=== PATIENT | female | born 1990 | race Two or more races ===

== ENCOUNTER 2016-11-15 10:31 | Emergency (ER) | payer OTHER ==
[~2016-11-15] VITALS: Ht 157.5 cm; Wt 70.0 kg
[~2016-11-15 10:31] MED LIST: ALDOMET250 MG PO; COLACE100 MG PO; ENDOCET 5-3251 EACH PO; MOTRIN800 MG PO
[2016-11-15 11:16] LABS: ADD MIUA? YES; BILIRUBIN NEGATIVE; BLOOD NEGATIVE; COLOR YELLOW ((YELLOW)); GLUCOSE (STRIP) NEGATIVE; KETONES 20; LEUKOCYTES NEGATIVE; NITRITE NEGATIVE; PROTEIN (STRIP) NEGATIVE; SPECIFIC GRAVITY 1.017 (1.000-1.030); UROBILINOGEN 0.2 MG/DL (0.2-1.0)
[2016-11-15 11:23] LABS: BACTERIA RARE /HPF; EPITHELIAL CELLS 1+ /HPF; HYALINE CASTS 0-5 /LPF; MUCUS TRACE /LPF; UCUL ADDED? NO; WHITE BLOOD CELLS 0-5 /HPF (0-5)
[2016-11-15 11:45] LABS: HEMATOCRIT 43.2 % (36.0-46.0); MCH 26.1 PG (29.0-34.0); MCHC 32.4 G/DL (30.0-36.0); MCV 80.6 FL (83-99); MEAN PLAT.VOLUME 9.5 uM^3 (9.5-12.4); PLATELET COUNT 373 K/uL (156-360); RBC DIS.WIDTH-CV 12.2 % (11.8-14.6); RBC DIS.WIDTH-SD 35.4 % (39-53); RED BLOOD COUNT 5.36 M/uL (3.80-5.20); WHITE BLOOD COUNT 13.5 K/uL (4.1-10.2)
[2016-11-15 11:55] LABS: CHLORIDE 105 mEq/L (99-109); POTASSIUM 3.1 mEq/L (3.7-5.4); SODIUM 140 mEq/L (136-147)
[2016-11-15 11:57] LABS: GLUCOSE 138 mg/dL (70-99)
[2016-11-15 11:58] LABS: ANION GAP 13 MEQ/L (2-14)
[2016-11-15 11:59] LABS: TOTAL BILIRUBIN 0.8 mg/dL (0.0-1.0)
[2016-11-15 12:00] LABS: ALKALINE PHOSPHATASE 49 IU/L (3-129)
[2016-11-15 12:01] LABS: GFR ESTIMATE (CALCULATED) > 59 mL/min/
[2016-11-15 12:02] LABS: UREA NITROGEN (BUN) 7 mg/dL (9-23)
[2016-11-15 12:04] LABS: LIPASE 11 U/L (1.0-51.0)
[2016-11-15 12:11] LABS: QUANTITATIVE HCG < 4.0 MIU/ML
[2016-11-15] MEDS ORDERED: ZOFRAN ODT4 MG PO (13:30)
[2016-11-15] MEDS ORDERED: KEFLEX500 MG PO (13:30)
[2016-11-15 14:43] VITALS: BP 180/109
== END 2016-11-15 14:43 | disposition home or self-care (01) ==
LOC: EME 10:31
DX: N12 Tubulo-interstitial nephritis, not specified as acute or chronic (principal); R11.0 Nausea; I10 Essential (primary) hypertension; F17.200 Nicotine dependence, unspecified, uncomplicated
CPT/HCPCS: 74177; 80053; 81003; 83690; 84702; 85027; 99281; 99285; J0696; J2270; J2405; J7030; J7050

== ENCOUNTER 2016-12-10 07:44 | Observation (INO) | payer OTHER ==
[~2016-12-10] VITALS: Ht 160 cm; Wt 71.0 kg
[~2016-12-10 07:44] MED LIST changes: +KEFLEX500 MG PO; +ZOFRAN ODT4 MG PO
[2016-12-10 09:09] LABS: HEMATOCRIT 39.7 % (36.0-46.0); MCH 26.3 PG (29.0-34.0); MCV 82.2 FL (83-99); MEAN PLAT.VOLUME 9.5 uM^3 (9.5-12.4); NRBC (%) 0.3 /100 WBC (0-0); PLATELET COUNT 276 K/uL (156-360); RBC DIS.WIDTH-CV 12.3 % (11.8-14.6); RBC DIS.WIDTH-SD 37.2 % (39-53); RED BLOOD COUNT 4.83 M/uL (3.80-5.20); WHITE BLOOD COUNT 5.8 K/uL (4.1-10.2)
[2016-12-10 09:18] LABS: CHLORIDE 107 mEq/L (99-109); POTASSIUM 4.1 mEq/L (3.7-5.4); SODIUM 138 mEq/L (136-147)
[2016-12-10 09:19] LABS: ADD MIUA? YES; BILIRUBIN NEGATIVE; BLOOD SMALL; COLOR YELLOW ((YELLOW)); GLUCOSE (STRIP) NEGATIVE; KETONES NEGATIVE; LEUKOCYTES NEGATIVE; NITRITE NEGATIVE; PROTEIN (STRIP) NEGATIVE; SPECIFIC GRAVITY 1.014 (1.000-1.030); UROBILINOGEN 0.2 MG/DL (0.2-1.0)
[2016-12-10 09:21] LABS: BACTERIA RARE /HPF; EPITHELIAL CELLS RARE /HPF; MUCUS TRACE /LPF; RED BLOOD CELLS 0-5 /HPF (0-5); UCUL ADDED? NO; WHITE BLOOD CELLS 0-5 /HPF (0-5)
[2016-12-10 09:21] LABS: GLUCOSE 113 mg/dL (70-99)
[2016-12-10 09:22] LABS: ANION GAP 9 MEQ/L (2-14); TOTAL BILIRUBIN 0.4 mg/dL (0.0-1.0)
[2016-12-10 09:24] LABS: ALKALINE PHOSPHATASE 36 IU/L (3-129); GFR ESTIMATE (CALCULATED) > 59 mL/min/
[2016-12-10 09:25] LABS: UREA NITROGEN (BUN) 6 mg/dL (9-23)
[2016-12-10 09:28] LABS: LIPASE 21 U/L (1.0-51.0)
[2016-12-10 09:30] LABS: INTERNAL CONTROL VALID? YES
[2016-12-10] MEDS ORDERED: ZOFRAN ODT4 MG PO (11:33)
[2016-12-10] MEDS ORDERED: PERCOCET 5/31 TABLET PO (11:33)
[2016-12-10] MEDS ORDERED: LISINOPRIL30 MG PO (12:27)
[2016-12-10] MEDS ORDERED: SPRINTEC1 EACH PO (12:28)
[2016-12-10 13:32] VITALS: BP 134/94
[2016-12-10 16:25] VITALS: BP 132/75
[2016-12-10 20:00] VITALS: BP 131/78
[2016-12-11] VITALS: BP 120/58
[2016-12-11 03:01] VITALS: BP 122/82
[2016-12-11 07:35] VITALS: BP 138/80
[2016-12-11] MEDS ORDERED: TAMSULOSIN HCL0.4 MG PO (09:41)
== END 2016-12-11 11:07 | disposition home or self-care (01) ==
LOC: EME 07:44 → EDOF 10:45 → 5WEST 13:18
PROVIDERS: Emergency Medicine
DX: N13.2 Hydronephrosis with renal and ureteral calculous obstruction (principal); I10 Essential (primary) hypertension; F17.210 Nicotine dependence, cigarettes, uncomplicated
CPT/HCPCS: 74176; 80053; 81003; 83690; 84703; 85027; 99281; 99285; G0378; J0780; J1885; J2270; J2405; J3010; J7030; S0028